=== PATIENT | male | born 1955 | race Two or more races ===

== ENCOUNTER → 2023-09-12 06:00 | Outpatient (CLI) | payer OTHER ==
[~2023-09-12] VITALS: Ht 165.1 cm; Wt 73.5 kg
[~2023-09-12 06:00] MED LIST: CARVEDILOL12.5 MG; LIPITOR40 M1 PO; NORVASC10 MG PO; PROSCAR5 MG PO; TAMS0.4C PO
[2023-09-12 11:27] LABS: HEMOGLOBIN 13.1 g/dL (13-16.00); MEAN CORPUSCULAR HGB CONC 34.5 g/dl (32.0-36.0); PLATELET COUNT 275 K/uL (150-450); RED BLOOD COUNT 4.36 M/uL (4.00-6.00); RED CELL DISTRIBUTION WIDTH 14.4 % (11.5-14.5)
[2023-09-12 11:59] LABS: CREATININE SERUM 2.24 mg/dL (0.70-1.30); GFR 29.39; POTASSIUM 4.4 mEq/L (3.5-5.1)
[2023-09-12 12:14] LABS: PH,URINE 5.5 (5.0-8.0); URINE APPEARANCE Cloudy; URINE BILIRRUBIN Negative (NEGATIVE); URINE BLOOD Moderate; URINE COLOR Yellow; URINE GLUCOSE Negative (NEGATIVE); URINE LEUKOCYTE Large; URINE NITRATE Positive; URINE UROBILINOGEN 0.2 E.U./dl
[2023-09-12 12:18] LABS: URINE EPITHELIAL CELLS 13.1 uL (0.0-38.8); URINE RBC 26.1 uL (0.0-20.8); URINE WBC 1565.7 uL (0.0-23.2)
[2023-09-12 12:26] LABS: INR 1.02; PARTIAL THROMBOPLASTIN TIME 27.2 SECONDS (22.0-34.0); PROTHROMBIN TIME 10.7 SECONDS (9.0-11.5)
[2023-09-12 12:35] LABS: URINE BACTERIA > 9821.5 uL (0.0-1933); URINE PROTEIN 100 (NEGATIVE)
== END | disposition home or self-care (01) ==
LOC: LAB 06:00 → EDSTATUS 08:15 → CIR.AMB 09-18 08:15
PROVIDERS: ATTEND Urology
DX: N40.1 Benign prostatic hyperplasia with lower urinary tract symptoms (principal)